=== PATIENT | female | born 1960 | race Two or more races ===

== ENCOUNTER 2025-03-04 21:30 | Emergency (ER) | payer MEDICARE, SELFPAY ==
--- NOTE | 2025-03-04 21:31 | EKG_ITS ---
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
[2025-03-04 21:41] VITALS: BP 155/92; PULSE 79; RESP 20; TEMP 37.5; O2SAT 95; BMI 31.0
--- NOTE | 2025-03-04 22:08 | XR_ITS ---
Examination: PA chest single view AP portable upright view chest single view Date and time: March 04, 2025 10:20 PM INDICATIONS: Chest pain today FINDINGS: Normal heart size The lungs are clear. The osseous structures are intact. IMPRESSION: No active disease
[2025-03-04 22:23] LABS: Basophils # (Auto) 0.1 Thou/mm3 (0.0-0.2); Basophils % (Auto) 1 % (0-2.5); Eosinophils # (Auto) 0.3 Thou/mm3 (0.0-0.5); Eosinophils % (Auto) 5 % (0-10); Hematocrit 37.3 % (36.0-46.0); Hemoglobin 13.1 g/dL (12.0-16.0); Lymphocytes # (Auto) 2.1 Thou/mm3 (1.0-4.8); Lymphocytes % (Auto) 30 % (10-50); Mean Corpuscular HGB Conc 35.1 g/dl (31.0-37.0); Mean Corpuscular Hemoglobin 29.2 pg (25.0-35.0); Mean Corpuscular Volume 83 fL (80-100); Monocytes # (Auto) 0.6 Thou/mm3 (0.0-0.8); Monocytes % (Auto) 9 % (0-12); Neutrophils # (Auto) 3.8 Thou/mm3 (1.8-7.7); Neutrophils % (Auto) 55 % (37-80); Platelet Count 198 Thou/mm3 (140-440); RDW Standard Deviation 41.1 fL (36.4-46.3); Red Blood Count 4.49 Miln/mm3 (4.00-5.20); White Blood Count 6.9 Thou/mm3 (3.6-11.0)
[2025-03-04 22:24] LABS: Immature Granulocytes Auto 0.02 Thou/mm3 (0.00-0.00); Nucleated Red Blood Cell # 0.00 Thou/mm3 (0.00-0.00); Nucleated Red Blood Cell % 0 /100 WBC (0)
[2025-03-04] MEDS: FAMOTIDINE 20 MG TABLET 40 MG PO (22:41)
[2025-03-04] MEDS: ONDANSETRON ODT 4 MG TABRAP PO (22:41)
[2025-03-04] MEDS: MG HYD/AL HYD/SIME (Maalox Reg) SUSP 30 ML UDC PO (22:41)
[2025-03-04 22:43] LABS: Carbon Dioxide 29.8 mMol/L (20.0-31.0); Chloride 103 mMol/L (98-107); Potassium 3.8 mMol/L (3.4-5.1); Sodium 142 mMol/L (136-145)
[2025-03-04 22:44] LABS: Alanine Aminotransferase 23 U/L (10-49); Albumin, Serum 4.4 gm/dL (3.4-4.8); Albumin/Globulin Ratio 1.6 (1.2-2.2); Alkaline Phosphatase 91 U/L (46-116); Anion Gap 9 (7-16); Aspartate Amino Transferase 24 U/L (0-34); BUN/Creatinine Ratio 13 Ratio (12-20); Bilirubin,Total 0.9 mg/dL (0.3-1.2); Blood Urea Nitrogen 18 mg/dL (9-23); Calcium 9.3 mg/dL (8.3-10.6); Calcium (Corrected) 9.3 mg/dL (8.5-10.1); Creatinine (Component) 1.4 mg/dL (0.6-1.3); Estimated Creatinine Clearance 41.5 mL/min (>60); Globulin 2.7 gm/dL (2.3-3.5); Glucose 104 mg/dL (74-106); Lipase 37 U/L (12-53); Osmolality,Calculated 285 (275-295); Total Protein 7.1 gm/dL (5.7-8.2); Troponin I < 0.002 ng/mL (0.0-0.045); eGFR 42 See Note
[2025-03-04 23:57] VITALS: BP 136/77; PULSE 68; RESP 16; TEMP 36.9; O2SAT 97
[2025-03-05] MEDS: SODIUM CHLORIDE 0.9% 1000 ML 1,000 ML 999 ML IV (00:05)
[2025-03-05] MEDS: ONDANSETRON INJ 2 MG/ML INJ 2 ML 4 MG IV (00:06)
[2025-03-05] MEDS: FAMOTIDINE INJ 10 MG/ML VIAL 2 ML 20 MG IVP (00:06)
[2025-03-05] MEDS: LIDOCAINE VISCOUS 2% 15 ML UDC PO (01:13)
[2025-03-05 01:29] LABS: Collection Type, Urine Clean Catch
--- NOTE | 2025-03-05 01:29 | PD.EDCHEST ---
ED Chest Pain RME/HPI General Chief Complaint: Chest Pain Stated Complaint: CHEST PAIN,EPIGASTRIC PAIN Time Seen by Provider: 03/04/25 22:04 Arrival date/time: 03/04/25 21:30 64F with history of HTN, psych, and RA presents to ED with several days of burning epigastric pain and non bloody N/V that radiates to chest. Patient denies URI symptoms and SOB. Limitations: no limitations Related Data Home Medications ?Medication ?Instructions ?Recorded ?Confirmed albuterol sulfate 90 mcg/actuation 2 puff inhalation Q6H PRN asthma 11/26/20 04/22/24 aerosol inhaler ezetimibe 10 mg tablet (Zetia) 10 mg PO QDAY 11/26/20 04/22/24 montelukast 10 mg tablet 10 mg PO QDAY 11/26/20 04/22/24 sertraline 100 mg tablet 100 mg PO QDAY 11/26/20 04/22/24 hydroxychloroquine 200 mg tablet 200 mg PO DAILY 02/04/24 04/22/24 diltiazem HCl 180 mg 180 mg PO QAM 04/22/24 04/22/24 capsule,extended release 24 hr, controlled losartan 50 mg-hydrochlorothiazide 1 tab PO QDAY 04/22/24 04/22/24 12.5 mg tablet omeprazole 20 mg tablet,delayed 20 mg PO QDAY 04/22/24 04/22/24 release Previous Rx's ?Medication ?Instructions ?Recorded pantoprazole 40 mg tablet,delayed 40 mg PO QDAY #30 tabs 02/06/24 release docusate sodium 100 mg capsule 100 mg PO BID #40 caps 04/24/24 (Colace) hydrocodone 5 mg-acetaminophen 325 1 tab PO Q6H PRN pain (scale score 04/24/24 mg tablet 7-10) #15 tabs ibuprofen 600 mg tablet 600 mg PO Q8H PRN pain (scale 04/24/24 score 4-6) #15 tabs ondansetron 4 mg disintegrating 4 mg PO Q8H PRN nausea and 03/05/25 tablet vomiting #14 tabs Allergies Allergy/AdvReac Type Severity Reaction Status Date / Time Sulfa (Sulfonamide Allergy Unknown RASH Verified 03/04/25 21:31 Antibiotics) Review of Systems Review of Systems Systems Reviewed: All systems reviewed, normal except as documented Constitutional Constitutional: Reports system reviewed and no additional complaints, except as documented, Denies fever(s) and Denies headache(s) ENT Ears, Nose, Mouth, and Throat: Denies disequilibrium and Denies headache(s) Cardiovascular Cardiovascular: Reports system reviewed and no additional complaints, except as documented, Reports as per HPI, Reports chest pain and Denies dyspnea Respiratory Respiratory: Reports system reviewed and no additional complaints, except as documented, Denies cough and Denies dyspnea Gastrointestinal Gastrointestinal: Reports system reviewed and no additional complaints, except as documented, Reports as per HPI, Reports abdominal pain, Reports nausea and Reports vomiting Neurologic Neurologic: Reports system reviewed and no additional complaints, except as documented, Denies confusion, Denies disequilibrium and Denies headache(s) Psychiatric Psychiatric: Denies confusion Past Medical History Past Medical History NEUROLOGIC: Negative Neurological Disorders or Seizures CARDIAC: Positive Cardiac Disorders (palpatations), Hypercholesterolemia and Hypertension; Negative Congestive Heart Failure RESPIRATORY: Positive Asthma; Negative Chronic Obstructive Pulmonary Disease (COPD) GASTROINTESTINAL: Positive Gastrointestinal Disorders, Gall Bladder Disease, Ulcer (esophageal ulcer), Hiatal Hernia, Gastroesophageal Reflux Disease and Obesity; Negative Hepatitis GENITOURINARY: Negative Genitourinary Disorders or Renal Disease REPRODUCTIVE: Positive Previous Pregnancies MUSCULOSKELETAL: Positive Musculoskeletal Disorders and Rheumatoid Arthritis ENT: Positive History of ENT Problems (wears glasses) ENDOCRINE: Negative Endocrine Disorders, Diabetes Mellitus Type 1 or Diabetes Mellitus Type 2 HEMATOLOGIC: Negative Blood Disorders or Sickle Cell Disease PSYCHO/SOCIAL: Positive Depression and Anxiety OTHER HISTORY: Positive Hospitalization (heart burn), Chicken Pox, Measles and Mumps; Negative Autoimmune Disease, Shingles, Blood Transfusions, Blood Transfusion Reaction, Anesthesia Reactions or Cancer Family History FAMILY HISTORY: Positive Family Cardiac Disorders, Family Cancer and Family Surgery; Negative Family Psychiatric Problems, Family Respiratory Disorders, Family Gastrointestinal Problems or Family Anesthesia Reaction Surgical History SURGICAL: Positive Hysterectomy and Tubal Ligation Social History SMOKING STATUS: Never smoker ED Exam General Limitations: Present no limitations General appearance: Present alert and in no apparent distress Head Head exam: Present atraumatic Eye Eye exam: Present normal appearance, PERRL and EOMI ENT ENT exam: Present normal exam, normal oropharynx and mucous membranes moist Neck Neck exam: Present normal inspection, full ROM and trachea midline Chest Chest inspection: Present normal inspection and symmetric chest wall rise Respiratory Respiratory exam: Present normal lung sounds bilaterally Cardiovascular Cardiovascular exam: Present regular rate, normal rhythm and normal heart sounds Abdominal Exam Abdominal exam: Present soft and normal bowel sounds Extremities Exam Extremities exam: Present normal inspection and full ROM Back Exam Back exam: Present normal inspection and full ROM Neurological Exam Neurological exam: Present alert, oriented X3 and CN II-XII intact Psychiatric Psychiatric exam: Present normal affect and normal mood Skin Skin exam: Present warm, dry, intact and normal color Course Quality Measures none Orders Category Date Time Status CT Screening NOW Care 03/04/25 23:11 Completed EKG (ED ONLY) *Do not use* NOW Care 03/04/25 21:31 Completed Insert IV NOW Care 03/04/25 23:[address] angio chest Stat Exams 03/04/25 23:11 Stop Req EKG (ED Only) Stat Exams 03/04/25 21:31 Draft XR chest 1V portable Stat Exams 03/04/25 22:08 Completed BMP [Basic Metabolic Panel] Stat Lab 03/05/25 01:10 Completed CBC Stat Lab 03/04/25 22:13 Completed Comprehensive Metabolic Panel Stat Lab 03/04/25 22:13 Completed Lipase Stat Lab 03/04/25 22:13 Completed Troponin I Stat Lab 03/04/25 22:13 Completed Urinalysis, C/S if Indicated Stat Lab 03/05/25 00:21 Completed Famotidine Inj [Pepcid Inj] Med 03/04/25 23:11 Discontinued 20 mg IVP X1 ONE Famotidine [Pepcid] Med 03/04/25 22:08 Discontinued 40 mg PO X1 ONE Lidocaine 2% Viscous [Xylocaine 2% Viscous] Med 03/05/25 00:43 Discontinued 15 ml PO X1 ONE Ondansetron Inj [Zofran Inj] Med 03/04/25 23:11 Discontinued 4 mg IV X1 ONE Ondansetron Odt [Zofran Odt] Med 03/04/25 22:08 Discontinued 4 mg PO X1 ONE Sodium Chloride 0.9% 1000 ml [Ns] 1,000 ml Med 03/04/25 23:12 Discontinued IV 999 mls/hr mg Hyd/Al Hyd/Brandy Susp [Maalox Susp] Med 03/04/25 22:08 Discontinued 30 ml PO X1 ONE Vital Signs Vital signs: Vital Signs Temperature 99.5 F 03/04/25 21:41 Pulse Rate 79 03/04/25 21:41 Respiratory Rate 20 03/04/25 21:41 Blood Pressure 155/92 H 03/04/25 21:41 Pulse Oximetry (%) 95 03/04/25 21:41 Oxygen Delivery Method Room Air 03/04/25 21:41 O2 at 95% on RA and WNLs Chest Pain MDM Narrative MDM Narrative:: 64F with history of HTN, psych, and RA presents to ED with several days of burning epigastric pain and non bloody N/V that radiates to chest. Patient denies URI symptoms and SOB. Physical exam reveals no ab tenderness. Normal WOB. Patient is afebrile, calm, and alert. EKG is NSR. CXR normal. Normal trop. No leukocytosis or anemia. CMP remarkable for Cr of 1.4. Repeat Cr 1.2 after 1L IVF. Through shared decision-making no CTA given low suspicion for UGIB, dissection, or PE, as well as high radiation, and patient felt better after GI cocktail. Patient states she will return if worsening and will follow-up with Dr. Toledo. Patient data External records reviewed:: [facility] previous records Clinical information provided by:: patient Social determinants that could affect healthcare access:: mental health Patient has the following chronic illnesses:: HTN, psych, and RA How is presenting disease/condition affected by chronic disease/condition?: exacerbated by Evaluation data The following diagnostics were reviewed and interpreted by me:: lab results, radiology exam(s) and EKG tracing(s) Lab and/or radiology exams considered but not ordered:: ordered Interpretation Summary: above Medications / Prescriptions Medications or Prescriptions considered but not ordered:: ordered Medication administrations:: Medication Administration History Discontinued Medications Al Hydrox/Mg Hydrox/Simethicone (Mg Hyd/Al Hyd/Brandy (Maalox Reg) Susp 30 Ml Udc) 30 ml PO X1 ONE Stop: 03/04/25 22:09 Last Admin: 03/04/25 22:41 Dose: 30 ml Documented By: FF Famotidine (Famotidine 20 Mg Tablet) 40 mg PO X1 ONE Stop: 03/04/25 22:09 Last Admin: 03/04/25 22:41 Dose: 40 mg Documented By: FF Famotidine (Famotidine Inj 10 Mg/Ml Vial 2 Ml) 20 mg IVP X1 ONE Stop: 03/04/25 23:12 Last Admin: 03/05/25 00:06 Dose: 20 mg Documented By: BD Sodium Chloride (Ns) 1,000 mls @ 999 mls/hr IV .Q1H1M ONE Stop: 03/05/25 00:12 Last Infusion: 03/05/25 00:55 Dose: Infused Documented By: Admin: 03/05/25 00:05 Dose: 999 mls/hr Documented By: BD Lidocaine HCl (Lidocaine Viscous 2% 15 Ml Udc) 15 ml PO X1 ONE Stop: 03/05/25 00:44 Last Admin: 03/05/25 01:13 Dose: 15 ml Documented By: BD Ondansetron HCl (Ondansetron Odt 4 Mg Tabrap) 4 mg PO X1 ONE; Protocol Stop: 03/04/25 22:09 Last Admin: 03/04/25 22:41 Dose: 4 mg Documented By: FF Ondansetron HCl (Ondansetron Inj 2 Mg/Ml Inj 2 Ml) 4 mg IV X1 ONE; Protocol Stop: 03/04/25 23:12 Last Admin: 03/05/25 00:06 Dose: 4 mg Documented By: CHLOÉ above Consultations Consultation(s) initiated? (list below): No Diagnosis Chest Pain Differential Diagnosis: fracture of rib, pneumothorax, stable angina, unstable angina pectoris, atypical chest pain, st elevation myocardial infarction, costochondritis, chest pain, biliary colic and other (gastritis, GERD, dissection, UGI bleed) Most likely diagnosis given after review of the tests above:: GERD Admission Indicated Admission indicated?: not indicated Admission Request Was there a request for admission?: No Disposition Plan Disposition Plan: Discharge Discharge Attestation Discharge Attestation: The patient and all family members were given an opportunity to ask questions and understood the discharge instructions. Discharge instructions specifically effects, indications for sooner follow up or return to the emergency department, and the expected course of current diagnosis. Patient condition: Stable Discharge Plan Plan Patient Disposition: HOME (Self Care) Discharge Disposition comment: Stable Prescriptions/Referrals Prescriptions/Med Rec: New ondansetron 4 mg tablet,disintegrating 4 mg PO Q8H PRN (Reason: nausea and vomiting) Qty: 14 0RF No Action sertraline 100 mg Tablet 100 mg PO QDAY montelukast 10 mg Tablet 10 mg PO QDAY ezetimibe [Zetia] 10 mg Tablet 10 mg PO QDAY albuterol sulfate 90 mcg/actuation Hfa Aerosol Inhaler 2 puff INHALATION Q6H PRN (Reason: asthma) hydroxychloroquine 200 mg tablet 200 mg PO DAILY pantoprazole 40 mg tablet,delayed release (DR/EC) 40 mg PO QDAY Qty: 30 0RF losartan-hydrochlorothiazide 50-12.5 mg Tablet 1 tab PO QDAY diltiazem HCl 180 mg Capsule,Ext.Rel 24h Degradable 180 mg PO QAM omeprazole 20 mg Tablet,Delayed Release (Dr/Ec) 20 mg PO QDAY docusate sodium [Colace] 100 mg capsule 100 mg PO BID Qty: 40 0RF ibuprofen 600 mg tablet 600 mg PO Q8H PRN (Reason: pain (scale score 4-6)) Qty: 15 0RF hydrocodone-acetaminophen 5-325 mg tablet 1 tab PO Q6H MDD 4 PRN (Reason: pain (scale score 7-10)) Qty: 15 0RF Referrals: Ethan Toledo MD [Primary Care Provider] - In 1 week Problem List Clinical Impression: GERD (gastroesophageal reflux disease) Patient/Caregiver Discharge Instructions Education Materials: ED GERD (Adult) Additional Instructions: Please follow-up with PCP within 24-48 hours and return immediately if symptoms worsen. Can try OTC TUMs and/or Pepcid as needed along with daily omeprazole. Print Language: Persian Stand Alone Forms: Patient Portal Info Letter PUSHPA/NAVNEET Supervising Physician PUSHPA/NAVNEET Supervising Physician: Dr. Barnett
[2025-03-05 01:37] LABS: Bilirubin,Urine Negative (Negative); Blood,Urine Negative (Negative); Clarity,Urine Clear (Clear/Hazy); Color,Urine Lt-Yellow (Lt Yel-Yel); Culture Indicated,Urine Not Indicated; Glucose, Urine Negative (Negative); Ketones,Urine Negative (Negative); Leukocyte Esterase,Urine Positive (Negative); Nitrite,Urine Negative (Negative); PH,Urine 6.5 (5.0-7.0); Protein,Urine Trace (Neg - Trace); RBC,Urine < 1 /hpf (0-3); Specific Gravity,Urine 1.016 (1.001-1.035); Squamous Epithelial Cell,Urine 1 /hpf (0-5); Urobilinogen,Urine Negative mg/dL (0.0-1.0); WBC,Urine 5 /hpf (0-5)
[2025-03-05 01:50] LABS: Anion Gap 8 (7-16); BUN/Creatinine Ratio 13 Ratio (12-20); Blood Urea Nitrogen 16 mg/dL (9-23); Calcium 8.5 mg/dL (8.3-10.6); Carbon Dioxide 28.0 mMol/L (20.0-31.0); Chloride 107 mMol/L (98-107); Creatinine (Component) 1.2 mg/dL (0.6-1.3); Estimated Creatinine Clearance 48.4 mL/min (>60); Glucose 97 mg/dL (74-106); Osmolality,Calculated 286 (275-295); Potassium 3.7 mMol/L (3.4-5.1); Sodium 143 mMol/L (136-145); eGFR 50 See Note
[2025-03-05 02:00] VITALS: BP 122/65; PULSE 60; RESP 20; TEMP 36.9; O2SAT 98
== END 2025-03-05 02:25 | disposition home or self-care (01) ==
PROVIDERS: Physician Assistant; Emergency Provider Emergency Medicine; PCP Internal Medicine
DX: K21.9 Gastro-esophageal reflux disease without esophagitis (principal); I10 Essential (primary) hypertension; R94.31 Abnormal electrocardiogram [ECG] [EKG]
CPT/HCPCS: 36415; 71045; 80048; 80053; 81001; 83690; 84484; 85025; 93005; 96361; 96374; 96375; 99283; J2405; J3490; J7030; Q0162; A9270